=== PATIENT | male | born 1950 | race Caucasian/White ===

== ENCOUNTER 2021-04-10 09:48 | Emergency (ER) | payer OTHER ==
--- NOTE | 2021-04-10 10:56 | RAD REPORT ---
EXAM DESCRIPTION: Jason Single View04/10/2021 10:45 am CLINICAL HISTORY: Chest pain COMPARISON: none FINDINGS: The lungs appear clear of acute infiltrate. The heart is normal size IMPRESSION: No acute abnormalities displayed
[2021-04-10 10:58] LABS: Absolute Lymphocytes (CBC) 1.3 K/uL (0.7-4.9); Hematocrit 44.7 % (39.6-49.0); Lymphocytes % 16.3 % (15.3-44.8); MPV 7.9 fL (7.6-11.3); RBC Red Blood Cell Count 4.98 M/uL (4.33-5.43)
[2021-04-10 11:02] LABS: Protime INR 1.07
[2021-04-10 11:09] LABS: Potassium 4.1 mmol/L (3.5-5.1); Sodium Level 138 mmol/L (136-145)
[2021-04-10 11:20] LABS: ALT/SGPT 31 U/L (12-78); AST/SGOT 15 U/L (15-37); Albumin 3.9 g/dL (3.4-5.0); Alkaline Phosphatase 105 U/L (45-117); BUN Blood Urea Nitrogen 11 mg/dL (7-18); Bicarbonate 28 mmol/L (21-32); Bilirubin Direct 0.2 mg/dL (0-0.2); Bilirubin Total 0.7 mg/dL (0.2-1.0); Glucose Level 105 mg/dL (74-106); Magnesium 2.3 mg/dL (1.8-2.4); NT PRO-BNP 30 pg/mL (<125); Protein, Total 7.9 g/dL (6.4-8.2); Troponin (Emerg Dept Use Only) < 0.02 ng/mL (0.0-0.045)
--- NOTE | 2021-04-10 13:37 | ER ---
Nurse's Notes [facility] Name: Dave Kirby Age: 71 yrs Sex: Male : 1950 Arrival Date: 04/10/2021 Time: 09:53 Bed 15 Private MD: Chau De La Cruz V Diagnosis: Chest pain, unspecified Presentation: 04/10 10:19 Chief complaint: Patient states: for the past couple of weeks has had intermittent vg1 chest pain; states today chest pain over left pectoral and radiates to left arm. Denies NVD, SOB, or cough. Coronavirus screen: Vaccine status: Patient reports being unvaccinated. Client denies travel out of the [place] in the last 14 days. Ebola Screen: Patient negative for fever greater than or equal to 101.5 degrees Fahrenheit, and additional compatible Ebola Virus Disease symptoms. Initial Sepsis Screen: Does the patient meet any 2 criteria? No. Patient's initial sepsis screen is negative. Does the patient have a suspected source of infection? No. Patient's initial sepsis screen is negative. Risk Assessment: Do you want to hurt yourself or someone else? Patient reports no desire to harm self or others. Onset of symptoms was April 10, 2021. 10:19 Method Of Arrival: Ambulatory vg1 10:19 Acuity: FELICITA 2 vg1 Triage Assessment: 10:22 General: Appears in no apparent distress. comfortable, Behavior is calm, cooperative. vg1 Pain: Complains of pain in anterior aspect of left upper chest Pain currently is 2 out of 10 on a pain scale. Cardiovascular: Patient's skin is warm and dry. Historical: - Allergies: 10:22 No Known Allergies; vg1 - Home Meds: 10:22 None [Active]; vg1 - PMHx: 10:22 None; vg1 - Immunization history:: Client reports having NOT received the Covid vaccine. - Social history:: Smoking status: Patient denies any tobacco usage or history of. Screenin:06 Abuse screen: Denies threats or abuse. Denies injuries from another. Nutritional eo2 screening: No deficits noted. Tuberculosis screening: No symptoms or risk factors identified. Fall Risk None identified. Assessment: 12:01 General: Appears in no apparent distress. Behavior is calm, cooperative. Pain: eo2 Complains of pain in chest and anterior aspect of left upper chest Pain radiates to left arm Pain began "Couple of weeks" per pt, "more pronounced yesterday and today" per pt. 12:03 Neuro: Level of Consciousness is awake, alert, obeys commands, Oriented to person, eo2 place, time, situation, Denies weakness dizziness, headache. Cardiovascular: Reports chest pain, Denies shortness of breath. Respiratory: Airway is patent Breath sounds are clear bilaterally. Denies cough, shortness of breath. Musculoskeletal: Reports numbness/tingling in left arm. Vital Signs: 10:19 BP 146 / 94; Pulse 97; Resp 16; Temp 98.0; Pulse Ox 99% ; Weight 90.72 kg; Height 6 ft. vg1 1 in. (185.42 cm); Pain 2/10; 11:30 BP 129 / 81; Pulse 85; Resp 19; Pulse Ox 96% ; Pain 0/10; eo2 12:00 BP 133 / 93; Pulse 88; Resp 17; Pulse Ox 96% ; eo2 13:30 BP 137 / 75; Pulse 80; Resp 15; Pulse Ox 98% ; Pain 0/10; eo2 14:00 BP 123 / 71; Pulse 88; Resp 15; Pulse Ox 98% ; Pain 0/10; eo2 10:19 Body Mass Index 26.39 (90.72 kg, 185.42 cm) vg1 ED Course: 09:53 Patient arrived in ED. mr 09:53 Chau De La Cruz MD is Private Physician. mr 10:22 Triage completed. vg1 10:22 Arm band placed on. EKG completed in triage. Results shown to MD. vg1 10:36 Initial lab(s) drawn, by ED staff, sent to lab. Inserted saline lock: 20 gauge in left vg1 antecubital area, using aseptic technique. ,using aseptic technique. completed by KJ, aircraft life support fitter Blood collected. 10:44 XRAY Chest (1 view) In Process Unspecified. EDMS 10:55 Dale Leyva PA is PHCP. jr8 10:55 Donny Hernandez MD is Attending Physician. jr8 10:56 Mo Chambers MD is Attending Physician. jr8 11:18 Yue Castañeda, WOODROW is Primary Nurse. eo2 12:06 Patient has correct armband on for positive identification. cardiac monitor on. Pulse eo2 ox on. NIBP on. Door closed. Noise minimized. Warm blanket given. 12:06 No provider procedures requiring assistance completed. Patient maintains SpO2 eo2 saturation greater than 95% on room air. 13:30 Troponin (emerg Dept Use Only) Sent. eo2 13:36 Keyur Haque MD is Referral Physician. jr8 14:00 IV discontinued, intact. eo2 Administered Medications: No medications were administered Outcome: 13:36 Discharge ordered by . jrTiera 14:00 Discharged to home ambulatory. eo2 14:00 Condition: stable 14:00 Discharge instructions given to patient, Instructed on discharge instructions, follow up and referral plans. Demonstrated understanding of instructions, follow-up care. 14:15 Patient left the ED. eo2 Signatures: Dispatcher [employer] [facility] WhiteheadDarling AutumnDale PA PA jr8 Maryan Purvis, RN RN vg1 Yue Castañeda RN RN eo2
--- NOTE | 2021-04-10 13:37 | EDPHYS ---
Physician Documentation [facility] Name: Dave Kirby Age: 71 yrs Sex: Male : 1950 Arrival Date: 04/10/2021 Time: 09:53 Bed 15 Private MD: Chau De La Cruz V ED Physician Mo Chambers HPI: 04/10 12:00 This 71 yrs old Male presents to ER via Ambulatory with complaints of Chest Pain, Chest jr8 Tightness. 12:00 The patient or guardian reports chest pain that is located primarily in the anterior jr8 chest wall, left. Onset: gradually, 2 week(s) ago. The pain radiates to the left arm. Associated signs and symptoms: The patient has no apparent associated signs or symptoms. The chest pain is described as stabbing. Duration: The patient or guardian reports multiple episodes, that are intermittent. Modifying factors: The symptoms are alleviated by nothing. the symptoms are aggravated by nothing. Severity of pain: At its worst the pain was moderate in the emergency department the pain has improved. The patient has not experienced similar symptoms in the past. The patient has not recently seen a physician. Denies any current health conditions or use of any prescribed meds. Historical: - Allergies: 10:22 No Known Allergies; vg1 - Home Meds: 10:22 None [Active]; vg1 - PMHx: 10:22 None; vg1 - Immunization history:: Client reports having NOT received the Covid vaccine. - Social history:: Smoking status: Patient denies any tobacco usage or history of. ROS: 12:00 Eyes: Negative for injury, pain, redness, and discharge, ENT: Negative for injury, jr8 pain, and discharge, Neck: Negative for injury, pain, and swelling, Respiratory: Negative for shortness of breath, cough, wheezing, and pleuritic chest pain, Abdomen/GI: Negative for abdominal pain, nausea, vomiting, diarrhea, and constipation, Back: Negative for injury and pain, MS/Extremity: Negative for injury and deformity, Skin: Negative for injury, rash, and discoloration, Neuro: Negative for headache, weakness, numbness, tingling, and seizure. 12:00 Cardiovascular: Positive for chest pain, Negative for edema, orthopnea, palpitations, paroxysmal nocturnal dyspnea. Exam: 12:00 Constitutional: This is a well developed, well nourished patient who is awake, alert, jr8 and in no acute distress. Neck: Trachea midline, no thyromegaly or masses palpated, and no cervical lymphadenopathy. Supple, full range of motion without nuchal rigidity, or vertebral point tenderness. No Meningismus. Chest/axilla: Normal chest wall appearance and motion. Nontender with no deformity. No lesions are appreciated. Cardiovascular: Regular rate and rhythm with a normal S1 and S2. No gallops, murmurs, or rubs. Normal PMI, no JVD. No pulse deficits. Respiratory: Lungs have equal breath sounds bilaterally, clear to auscultation and percussion. No rales, rhonchi or wheezes noted. No increased work of breathing, no retractions or nasal flaring. Abdomen/GI: Soft, non-tender, with normal bowel sounds. No distension or tympany. No guarding or rebound. No evidence of tenderness throughout. Back: No spinal tenderness. No costovertebral tenderness. Full range of motion. Skin: Warm, dry with normal turgor. Normal color with no rashes, no lesions, and no evidence of cellulitis. MS/ Extremity: Pulses equal, no cyanosis. Neurovascular intact. Full, normal range of motion. Neuro: Awake and alert, GCS 15, oriented to person, place, time, and situation. Cranial nerves II-XII grossly intact. Motor strength 5/5 in all extremities. Sensory grossly intact. Vital Signs: 10:19 BP 146 / 94; Pulse 97; Resp 16; Temp 98.0; Pulse Ox 99% ; Weight 90.72 kg; Height 6 ft. vg1 1 in. (185.42 cm); Pain 2/10; 11:30 BP 129 / 81; Pulse 85; Resp 19; Pulse Ox 96% ; Pain 0/10; eo2 12:00 BP 133 / 93; Pulse 88; Resp 17; Pulse Ox 96% ; eo2 13:30 BP 137 / 75; Pulse 80; Resp 15; Pulse Ox 98% ; Pain 0/10; eo2 14:00 BP 123 / 71; Pulse 88; Resp 15; Pulse Ox 98% ; Pain 0/10; eo2 10:19 Body Mass Index 26.39 (90.72 kg, 185.42 cm) vg1 MDM: 10:56 Patient medically screened. jr8 12:00 HEART Score: History: Moderately Suspicious (1), ECG: Normal (0), Age: > or = 65 years jr8 (2), Risk Factors: No Risk Factors Known (0), Troponin: < or = 1 x Normal Limit (0), Total Score = 3. The patient was given aspirin in the Emergency Department. Data reviewed: vital signs, nurses notes, lab test result(s), EKG, radiologic studies, plain films. Data interpreted: Pulse oximetry: on room air is 99 %. Interpretation: normal. Counseling: I had a detailed discussion with the patient and/or guardian regarding: the historical points, exam findings, and any diagnostic results supporting the discharge/admit diagnosis, lab results, radiology results. 13:36 ED course: Patient hemodynamically stable. No pain at this time. x2 troponins both jr8 negative. Will send patient to see cardiology this week. Knows to come back if worse . 13:45 ED course: Close return precautions given to patient along with strict follow up. Low jr8 threshold to come back. Patient good with this and will follow instructions . 04/10 10:36 Order name: Basic Metabolic Panel; Complete Time: 11: 04/10 10:36 Order name: CBC with Diff; Complete Time: : 04/10 10:36 Order name: LFT's; Complete Time: 11: 04/10 10:36 Order name: Magnesium; Complete Time: 11: 04/10 10:36 Order name: NT PRO-BNP; Complete Time: 11: 04/10 10:36 Order name: PT-INR; Complete Time: 11: 04/10 10:36 Order name: Troponin (emerg Dept Use Only); Complete Time: 11: 04/10 10:36 Order name: XRAY Chest (1 view); Complete Time: 11: 04/10 10:36 Order name: EKG; Complete Time: 10:36 04/10 10:36 Order name: Cardiac monitoring; Complete Time: 11:24 04/10 10:36 Order name: EKG - Nurse/Tech; Complete Time: 10:36 04/10 10:36 Order name: IV Saline Lock; Complete Time: 10:36 04/10 12:29 Order name: Troponin (emerg Dept Use Only) jr8 04/10 12:30 Order name: Troponin (Emerg Dept Use Only); Complete Time: 13:35 EDMS 04/10 10:36 Order name: Labs collected and sent; Complete Time: 10:36 vg1 04/10 10:36 Order name: O2 Per Protocol; Complete Time: 10:36 vg1 04/10 10:36 Order name: O2 Sat Monitoring; Complete Time: 10:36 vg1 Administered Medications: No medications were administered Disposition: 17:05 Co-signature as Attending Physician, Mo Chambers MD. ma2 Disposition Summary: 04/10/21 13:36 Discharge Ordered Location: Home jr8 Problem: new jr8 Symptoms: have improved jr8 Condition: Stable jr8 Diagnosis - Chest pain, unspecified jr8 Followup: jr8 - With: Keyur Haque MD - When: 1 - 2 days - Reason: Recheck today's complaints, Continuance of care, Re-evaluation by your physician Discharge Instructions: - Discharge Summary Sheet jr8 - Nonspecific Chest Pain, Adult jr8 Forms: - Medication Reconciliation Form jr8 - Thank You Letter jr8 - Antibiotic Education jr8 - Prescription Opioid Use jr8 Signatures: Dispatcher [employer] EDMS Dale Leyva PA PA jr8 Mo Chambers MD MD ma2 Maryan Purvis RN RN vg1
[2021-04-10 14:25] VITALS: TEMP 98
[2021-04-10 14:31] VITALS: O2SAT 98
[2021-04-10 14:32] VITALS: BP 123/71
--- NOTE | 2021-04-11 10:06 | EKG ---
Test Date: 2021-04-10 Test Time: 10:25:53 Associate Quality Engineer: JOEY MEASUREMENT RESULTS: Intervals: Rate: 94 MI: 230 QRSD: 150 QT: 374 QTc: 467 [place]: P: 52 MI: 230 QRS: -71 T: 20 INTERPRETIVE STATEMENTS: Sinus rhythm with 1st degree AV block Right bundle branch block Left anterior fascicular block Bifascicular block Voltage criteria for left ventricular hypertrophy Cannot rule out Septal infarct, age undetermined Possible Lateral infarct, age undetermined Abnormal ECG No previous ECG available for comparison Electronically Signed On 04-11-21 10:04:37 OUT OF SCHOOL HOURS CARE WORKER by Keyur Haque
== END 2021-04-10 14:15 | disposition home or self-care (01) ==
LOC: ER 09:48
DX: R07.9 Chest pain, unspecified (principal)
CPT/HCPCS: 36415; 71045; 80048; 80076; 83735; 83880; 84484; 85025; 85610; 93005; 99285

== ENCOUNTER 2021-05-15 11:46 | Day surgery (SDC) | payer OTHER ==
[2021-05-13 10:57] LABS: Absolute Lymphocytes (CBC) 1.5 K/uL (0.7-4.9); Hematocrit 41.8 % (39.6-49.0); Lymphocytes % 21.5 % (15.3-44.8); MPV 7.5 fL (7.6-11.3); RBC Red Blood Cell Count 4.63 M/uL (4.33-5.43)
[2021-05-13 11:04] LABS: Protime INR 0.97
[2021-05-13 11:14] LABS: Potassium 4.1 mmol/L (3.5-5.1)
--- NOTE | 2021-05-14 05:34 | EKG ---
Test Date: 2021-05-13 Test Time: 10:32:53 Manager Advanced: CHERYL MEASUREMENT RESULTS: Intervals: Rate: 79 ME: 244 QRSD: 148 QT: 404 QTc: 463 [place]: P: 70 ME: 244 QRS: -72 T: 40 INTERPRETIVE STATEMENTS: Sinus rhythm with 1st degree AV block Right bundle branch block Left anterior fascicular block Bifascicular block Abnormal ECG Compared to ECG 04/10/2021 10:25:53 Left ventricular hypertrophy no longer present Myocardial infarct finding no longer present Bifascicular block still present Electronically Signed On 05-14-21 05:34:02 DIRECTOR OF PRODUCT DESIGN by Keyur Haque
[2021-05-15] MEDS ORDERED: NA CHLORIDE 0.9% 500 ML ONE (11:48)
[2021-05-15] MEDS ORDERED: HEPA 1000U/500MLS 2,000 UNIT/1,000 ML BAG IV ONE (13:27)
[2021-05-15] MEDS ORDERED: FENTANYL CITR 100 MCG/2 ML ONE (13:40)
[2021-05-15] MEDS ORDERED: MIDAZOLAM HCL 2 MG/2 ML INJ ONE (13:41)
[2021-05-15] MEDS ORDERED: VERAPAMIL HCL 10 MG/4 ML VIAL IV ONE (13:41)
[2021-05-15] MEDS ORDERED: HEPARIN 5000 UNIT/ML 1 ML VIAL ONE (13:41)
[2021-05-15] MEDS ORDERED: TICAGRELOR 90 MG TABLET PO ONE (13:42)
[2021-05-15] MEDS ORDERED: CLOPIDOGREL 75 MG TABLET ONE (13:42)
[2021-05-15] MEDS ORDERED: ASPIRIN 325 MG TAB ONE (13:42)
[2021-05-15] MEDS ORDERED: ATROPINE SULF 1 MG/10 ML SYR IV ONE (13:42)
[2021-05-15] MEDS ORDERED: HEPA 1000U/500MLS 1,000 UNIT/500 ML BAG IV ONE (14:27)
[2021-05-15] MEDS ORDERED: REGADENOSON 0.4 MG/5 ML SYR IV ONE (14:46)
[2021-05-15 16:45] VITALS: TEMP 98.2
--- NOTE | 2021-05-15 17:01 | OP ---
Date of Procedure: 05/15/2021 Surgeon: XOCHITL SWEENEY Procedures Performed: 1.Selective coronary angiogram. 2.FFR of moderate mid LAD stenosis, which was insignificant value of . 3.Left heart catheterization. Access: Right radial artery 6-Portuguese closed with TR band. Indication: Abnormal stress test. Complications: None. Anesthesia: Total sedation time was 45 minutes. Description Of Procedure: After risks, benefits, and alternatives were explained, the patient agreed to procedure and signed informed consent. The patient was brought into cardiac catheterization [facility], prepped and draped in sterile fashion. Then, we accessed the right radial artery using pedia ApprenNet micropuncture kit and placed a 6-Portuguese Slender sheath and then took 5-Portuguese [place] 4.0 catheter into the aortic root, engaged the left main and left coronary artery. Took standard views and then gave systemic heparin to assure ACT level above 250 and then took guide into the aortic tawnya t, engaged the left main and took a Comet wire and into the aortic root equalized pressure and then w kylie was advanced into the LAD crossing the area of stenosis and FFR was done using Lexiscan and a patty ue of 0.90 was obtained. Then, on pullback, there was no drift and final angiogram was satisfactory. Then, I removed the guide and the wire and sheath, and placed TR band with good hemostasis. Findings: 1.Left main normal. 2.LAD has a diffuse mid 50% to 60% stenosis after the diagonal 1 branch takeoff. It was insignifica nt by FFR of 0.90 and the diagonal 1 branch is larger than the LAD itself and free of disease. 3.Left circumflex is normal. 4.RCA; very large and dominant and normal. 5.Insignificant FFR of mid LAD of 0.90. 6.Normal LVEDP at 11 mmHg. Conclusion: 1.Moderate mid LAD stenosis which was insignificant by FFR value of 0.90. 2.Normal LVEDP and no other coronary artery disease. Plan: Medical management. Start him on Lipitor 40 mg at bedtime, aspirin 81 mg, and plan for stress test in 1 year. SR/MODL Voice ID: [id number] Report ID: [id number]
[2021-05-15 18:32] VITALS: BP 128/69; O2SAT 97
== END 2021-05-15 18:38 | disposition home or self-care (01) ==
LOC: CCL 11:46
PROVIDERS: ATTEND Internal Medicine
DX: I25.10 Atherosclerotic heart disease of native coronary artery without angina pectoris (principal); R03.0 Elevated blood-pressure reading, without diagnosis of hypertension; Z87.891 Personal history of nicotine dependence; Z20.822 Contact with and (suspected) exposure to COVID-19
CPT/HCPCS: 93005; 85025; 80048; 36415; 85610; 85730; 93458; 93571; U0003; C1893; J1644 ×3; J2250; J3010; J2785; J7040

== ENCOUNTER 2023-10-04 10:52 | Emergency (ER) | payer OTHER ==
[2023-10-04] MEDS ORDERED: FOLIC ACID 5 MG/ML VIAL ONE (11:18)
--- NOTE | 2023-10-04 11:18 | RAD REPORT ---
EXAM DESCRIPTION: CT - Ct Stroke Brain Wo Cont - 10/04/2023 11:11 am CLINICAL HISTORY: STROKE ALERT COMPARISON: No comparisons TECHNIQUE: All CT scans are performed using dose optimization technique as appropriate and may inclu de automated exposure control or mA/KV adjustment according to patient size. FINDINGS: No intracranial hemorrhage, hydrocephalus or extra-axial fluid collection.No areas of brai n edema or evidence of midline shift. The paranasal sinuses and mastoids are clear. The calvarium is intact. IMPRESSION: No acute intracranial abnormality. Conveyed to Dr. Hardy by Dr. Medellin at 1113 on 10/04/23
[2023-10-04 11:19] LABS: Specific Gravity < 1.005 (1.005-1.030); Urine Bilirubin NEGATIVE (Negative); Urine Blood Negative (Negative); Urine Clarity Clear (Clear); Urine Color Colorless (Yellow); Urine Glucose NEGATIVE (Negative); Urine Ketones NEGATIVE (Negative); Urine Microscopic Reflex YN NO UMIC; Urine Nitrite NEGATIVE (Negative); Urine Protein NEGATIVE (Negative); Urine Urobilinogen Normal (Normal)
[2023-10-04] MEDS ORDERED: NA CHLORIDE 0.9% 1,000 ML ONE (11:19)
[2023-10-04 11:21] LABS: PT Prothrombin Time 11.2 SECONDS (9.4-12.5); Protime INR 1.02
[2023-10-04 11:22] LABS: Absolute Lymphocytes (CBC) 1.1 K/uL (0.7-4.9); Absolute Monocytes 0.5 K/uL (0.1-1.3); Absolute Neutrophil 5.4 K/uL (1.8-8.0); Basophils % 0.6 % (0-1.3); Eosinophils % 0.5 % (0-4.4); Hematocrit 43.5 % (39.6-49.0); Hemoglobin 14.5 g/dL (13.6-17.9); Lymphocytes % 15.8 % (15.3-44.8); MCHC 33.3 g/dL (32.0-36.0); MCV 90.2 fL (80-100); MPV 7.6 fL (7.6-11.3); Monocytes % 7.6 % (3.3-12.3); Neutrophils % 75.5 % (41.7-73.7); Nucleated Red Blood Cells % 0.1 % (0-0); Platelets 317 thou/uL (152-406); RBC Red Blood Cell Count 4.82 M/uL (4.33-5.43); Red Cell Distribution Width 14.4 % (12.1-15.2)
--- NOTE | 2023-10-04 11:23 | RAD REPORT ---
EXAM DESCRIPTION: CT - Head angio - 10/04/2023 11:11 am CLINICAL HISTORY: CODE STROKE COMPARISON: Ct Stroke Brain Wo Cont dated 10/04/2023; Neck Angio dated 10/04/2023 TECHNIQUE: CT angiography of the head was performed with maximum intensity reformatted images. 3D ma ximum intensity pixel (MIP) reconstructions were created All CT scans are performed using dose optimization technique as appropriate and may include automated exposure control or mA/KV adjustment according to patient size. FINDINGS: Anterior circulation: The left ICA occlusion extends from the neck with reconstitution at the distal left petrous segment. Left M2 segment MCA occlusion. The right middle cerebral artery is patent. The anterior cerebral naima slava are patent. Posterior circulation: No aneurysm or large vessel occlusion. No hemodynamically significant stenosis. No arteriovenous malf ormation identified. The right distal vertebral artery is hypoplastic with prominent PICA branch. The basilar artery and posterior cerebral arteries are patent. origin of the right MANAGER POWER. IMPRESSION: Left M2 segment MCA occlusion. Reference CTA neck regarding left ICA occlusion. The left ICA does reconstitute at the distal left pe trous segment due to collateral flow. Findings discussed with Dr. Plaza by Dr. Medellin at 1119 on 10/04/23
--- NOTE | 2023-10-04 11:26 | RAD REPORT ---
EXAM DESCRIPTION: CT - Neck Angio - 10/04/2023 11:11 am CLINICAL HISTORY: PAIN COMPARISON: Ct Stroke Brain Wo Cont dated 10/04/2023 TECHNIQUE: CT angiography of the neck vessels was performed with maximum intensity reformatted image s. CAROTID STENOSIS REFERENCE USING NASCET CRITERIA: Mild - <50% stenosis. Moderate - 50-69% stenosis. Severe - 70-94% stenosis. Near occlusion - 95-99% stenosis. Occluded - 100% stenosis. All CT scans are performed using dose optimization technique as appropriate and may include automated exposure control or mA/KV adjustment according to patient size. FINDINGS: Long segment occlusion of the left ICA starting at the bulb and extending intracranially. The left external carotid artery is patent. The common carotid arteries are both patent. The right ICA has some calcified plaque proximally but no hemodynamically significant stenosis. The left vertebral artery is mildly dominant. Both vertebral arteries are patent. 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 The right carotid system and both vertebral arteries are patent. Discussed with Dr. Plaza at 1116 on 10/04/23
[2023-10-04 11:37] LABS: ALT/SGPT 25 U/L (16-61); AST/SGOT 17 U/L (15-37); Albumin 3.9 g/dL (3.4-5.0); Albumin/Globulin Ratio 1.1 (1.1-1.8); Alkaline Phosphatase 87 U/L (45-117); Anion Gap 5.8 mEq/L (5.0-15.0); BUN Blood Urea Nitrogen 7 mg/dL (7-18); Bicarbonate 29 mEq/L (21-32); Bilirubin Direct 0.2 mg/dL (0-0.2); Bilirubin Indirect, Calculated 0.4 mg/dL (0.2-0.8); Bilirubin Total 0.6 mg/dL (0.2-1.0); C-Reactive Protein < 2.90 mg/L (<3.00); Globulin 3.7 g/dL (2.3-3.5); Glomerular Filtration Rate 79 ml/min (=/>90); Glucose Level 107 mg/dL (74-106); Magnesium 2.2 mg/dL (1.6-2.4); NT PRO-BNP 24 pg/mL (<125); Potassium 3.8 mEq/L (3.5-5.1); Protein, Total 7.6 g/dL (6.4-8.2); Sodium Level 133 mEq/L (136-145); Troponin High Sensitivity 8.8 pg/mL (<58.9)
[2023-10-04] MEDS ORDERED: ASPIRIN 81 MG CHEWABLE TABLET ONE (11:39)
[2023-10-04] MEDS ORDERED: CLOPIDOGREL 75 MG TABLET ONE (11:39)
--- NOTE | 2023-10-04 11:50 | ER ---
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 STATES WAS TRYING TO TALK AND THE WORDS WERE NOT COMING OUT LIKE HE WANTED. STATES CAN SPEAK BETTER NOW. Coronavirus screen: Client denies travel out of the [place] in the last 14 days. At this time, the client does not indicate any symptoms associated with coronavirus-19. Ebola Screen: Patient negative for fever greater than or equal to 101.5 degrees Fahrenheit, and additional compatible Ebola Virus Disease symptoms Patient denies exposure to infectious person. Patient denies travel to an Ebola-affected area in the 21 days before illness onset. No symptoms or risks identified at this time. No acute neurological deficit is noted. The patients blood glucose was checked before arriving to the hospital and was found to be normal. Initial Sepsis Screen: Does the patient meet any 2 criteria? No. Patient's initial sepsis screen is negative. Does the patient have a suspected source of infection? No. Patient's initial sepsis screen is negative. Risk Assessment: Do you want to hurt yourself or someone else? Patient reports no desire to harm self or others. Onset of symptoms was October 04, 2023 at 04:30. Care prior to arrival: IV initiated. 18 GA, in the left antecubital area. 10:53 Method Of Arrival: EMS: [facility] db 10:53 Acuity: FELICITA 2 db Triage Assessment: 10:53 The onset of the patients symptoms was October 03, 2023 at 21:00. General: Appears in no db apparent distress. comfortable, Behavior is calm, cooperative. Pain: Denies pain. Neuro: Level of Consciousness is awake, alert, obeys commands, Oriented to person, place, time, situation, Appropriate for age Moves all extremities. Full function Gait is steady, Speech is normal, Facial symmetry appears normal, Pupils are PERRLA. Respiratory: Airway is patent Respiratory effort is even, unlabored, Respiratory pattern is regular, symmetrical. 13:06 Neuro: Reports APHASIA. db Stroke Activation: Symptom onset > 6 hours Physician: ED Attending; Name: ; Notified At: ; Arrived At: Physician: Mid-Level Provider; Name: ; Notified At: ; Arrived At: Physician: [not used]; Name: ; Notified At: ; Arrived At: Physician: [not used]; Name: ; Notified At: ; Arrived At: Physician: [not used]; Name: ; Notified At: ; Arrived At: Historical: - Allergies: 10:53 No Known Allergies; db - PMHx: 12:40 None; db - Immunization history:: Adult Immunizations unknown. - Infectious Disease History:: Denies. - Social history:: Smoking status: Patient denies any tobacco usage or history of. Screenin:23 Estela Swallow Protocol Exclusion Criteria: Exclusion Criteria Result: Proceed Brief es3 Cognitive Screen What is your name? Normal, Where are you right now? Normal, What year is it? Normal. Oral Mechanism Examination Facial Symmetry: Normal, Motion: Normal, Lip Closure: Normal, Oral Mechanism Result: Normal. 3 oz Water Swallow Challenge: Pt able to drink all water without stopping, coughing, choking or throat clearing: Yes Result: PASS Notified: Houston Hardy MD. 13:05 [facility] ED Fall Risk Assessment (Adult) History of falling in the last 3 months, db including since admission No falls in past 3 months (0 pts) Confusion or Disorientation No (0 pts) Intoxicated or Sedated No (0 pts) Impaired Gait No (0 pts) Mobility Assist Device Used No (0 pt) Altered Elimination No (0 pt) Score/Fall Risk Level 0 - 2 = Low Risk Oriented to surroundings, Maintained a safe environment. Abuse screen: Denies threats or abuse. Denies injuries from another. Nutritional screening: No deficits noted. Tuberculosis screening: No symptoms or risk factors identified. Assessment: 11:13 Reassessment: Pt back from CT scan via stretcher, accompanied by me. . aa5 11:23 VAN Scoring: Arm Drift: Patients demonstrates NO arm weakness. Patient is VAN Negative. db Visual Disturbance: No visual disturbance noted. Aphasia: Expressive aphasia noted. Provider notified of +VAN scoring. Neglect: No neglect noted. TNKase (Tenecteplase) Screening: Contraindications: Other: OUTSIDE TNK ADMINISTRATION TIME. 11:34 Reassessment: PATIENT SON CHACE KIRBY [phone] PROVIDED UPDATE OF PATIENT CONDITION db AND ASKED FOR UPDATE OF WHERE PATIENT IS GOING. 11:52 Reassessment: Patient appears in no apparent distress at this time. Patient and/or db family updated on plan of care and expected duration. Pain level reassessed. Patient is alert, oriented x 3, equal unlabored respirations, skin warm/dry/pink. PATIENT SITTING UP TALKING ON THE PHONE. General: Appears in no apparent distress. comfortable, Behavior is calm, cooperative. Neuro: Level of Consciousness is awake, alert, obeys commands, Oriented to person, place, time, situation. Respiratory: Airway is patent Respiratory effort is even, unlabored, Respiratory pattern is regular, symmetrical. 12:43 Reassessment: REPORT GIVEN TO [facility] REAGAN AT [facility]. db 12:44 Reassessment: Patient appears in no apparent distress at this time. Patient and/or db family updated on plan of care and expected duration. Pain level reassessed. Patient is alert, oriented x 3, equal unlabored respirations, skin warm/dry/pink. 13:05 Reassessment: EMS ARRIVAL FOR PATIENT TRANSPORT OF PT TO RECEIVING HOS[facility]. db 13:05 Reassessment: Patient appears in no apparent distress at this time. Patient and/or db family updated on plan of care and expected duration. Pain level reassessed. Patient is alert, oriented x 3, equal unlabored respirations, skin warm/dry/pink. Patient states feeling better. Vital Signs: 10:53 BP 170 / 102; Pulse 86; Resp 16; Pulse Ox 98% on R/A; Weight 90.72 kg; Height 6 ft. 1 db in. ; 11:15 BP 181 / 148; Pulse 86; Resp 20; Temp 98(O); Pulse Ox 98% ; db 11:19 BP 180 / 102; Pulse 86; Resp 16; Pulse Ox 97% ; db 11:30 BP 155 / 83; Pulse 82; Resp 16; Pulse Ox 97% on R/A; db 12:30 BP 146 / 77; Pulse 70; Resp 20; Pulse Ox 97% on R/A; db 10:53 Body Mass Index 26.39 (90.72 kg, 185.42 cm) db Vitals: 11:15 Cardiac Rhythm Assessment Regular Sinus rhythm. db NIH Stroke Scale Scores: 11:23 NIHSS Score: 1 es3 11:56 NIHSS Score: 1 meredith 13:04 NIHSS Score: 1 db ED Course: 10:53 Arm band placed on Patient placed in an exam room. db 10:54 Patient arrived in ED. db 10:57 Houston Hardy MD is Attending Physician. meredith 10:[address] via stretcher. db 10:58 Janis Camacho, RN is Primary Nurse. db 11:00 Inserted saline lock: 22 gauge in right antecubital area, using aseptic technique. db 11:04 Triage completed. db 11:06 Maintain EMS IV. Dressing intact. Good blood return noted. Site clean \T\ dry. Gauge \T\ db site: 18 G LEFT AC. Flushed left. 11:12 CT Stroke Brain w/o Contrast In Process Unspecified. EDMS 11:13 CT Neck Angio In Process Unspecified. EDMS 11:13 Head angio In Process Unspecified. EDMS 11:21 EKG done, by ED staff, reviewed by Houston Hardy MD. zm 11:27 Patient has correct armband on for positive identification. Bed in low position. Call db light in reach. Side rails up X2. Provided Education on: STROKE CARE AND PLANNING. Client placed on continuous cardiac and pulse oximetry monitoring. NIBP monitoring applied. court monitor on. Pulse ox on. NIBP on. Warm blanket given. 11:55 XRAY Chest (1 view) In Process Unspecified. EDMS 13:05 No provider procedures requiring assistance completed. Patient transferred, IV remains db in place. Administered Medications: 11:18 Drug: foLIC Acid IVPB 1 mg IVPB once Route: IVPB; Site: left antecubital; db 11:51 Follow up: Response: No adverse reaction; IV Status: Completed infusion db 11:18 Drug: NS 0.9% IV 1000 ml IV at 1 bolus Per protocol; 1000 mL bolus Route: IV; Rate: 1 db bolus; Site: left antecubital; 13:07 Follow up: Response: No adverse reaction; IV Status: Completed infusion; IV Intake: db 1000ml 11:40 Drug: Aspirin PO Chewable Tablet 162 mg PO once Route: PO; db 13:07 Follow up: Response: No adverse reaction db 11:40 Drug: Clopidogrel PO 75 mg PO once Route: PO; db 13:07 Follow up: Response: No adverse reaction db Medication: 13:05 VIS not applicable for this client. db Point of Care Testing: Blood Glucose: 11:28 Blood Glucose: 100 mg/dL; db Ranges: Intake: 13:07 IV: 1000ml; Total: 1000ml. db Outcome: 11:50 ER care complete, transfer ordered by meredith 13:05 Transferred by ground EMS to [facility], Transfer form completed. db X-rays sent w/ patient. 13:05 Condition: stable 13:05 Instructed on the need for transfer, 13:13 Patient left the ED. db NIH Stroke Scale - NIH Stroke Score Date: 10/04/2023 Time: 11:23 Total Score = 1 10. Dysarthria (speech clarity - read or repeat words) - 0(Normal) 11. Extinction and Inattention (visual/tactile/auditory/spatial/personal) - 0(No abnormality) 1a. Level of Consciousness (LOC) - 0(Alert) 1b. Level of Consciousness (LOC) (Month \T\ Age) - 0(Both) 1c. LOC Commands (Open \T\ Closes Eyes/Manager Intern) - 0(Both) 2. Best Gaze (Lateral Gaze Paresis) - 0(Normal) 3. Visual Field Loss - 0(No visual loss) 4. Facial Palsy - 0(Normal) 5a. Left Arm: Motor (10-second hold) - 0(No drift) 5b. Right Arm: Motor (10-second hold) - 0(No drift) 6a. Left Leg: Motor (5-second hold - always test supine) - 0(No drift) 6b. Right Leg: Motor (5-second hold - always test supine) - 0(No drift) 7. Limb Ataxia (finger/nose \T\ heel/zheng - test with eyes open) - 0(Absent) 8. Sensory Loss (pinprick arms/legs/face) - 0(Normal) 9. Best Language: Aphasia (description/naming/reading) - 1(Mild to moderate aphasia) Initials: es3 NIH Stroke Scale - NIH Stroke Score Date: 10/04/2023 Time: 11:56 Total Score = 1 10. Dysarthria (speech clarity - read or repeat words) - 0(Normal) 11. Extinction and Inattention (visual/tactile/auditory/spatial/personal) - 0(No abnormality) 1a. Level of Consciousness (LOC) - 0(Alert) 1b. Level of Consciousness (LOC) (Month \T\ Age) - 0(Both) 1c. LOC Commands (Open \T\ Closes Eyes/Manager Intern) - 0(Both) 2. Best Gaze (Lateral Gaze Paresis) - 0(Normal) 3. Visual Field Loss - 0(No visual loss) 4. Facial Palsy - 0(Normal) 5a. Left Arm: Motor (10-second hold) - 0(No drift) 5b. Right Arm: Motor (10-second hold) - 0(No drift) 6a. Left Leg: Motor (5-second hold - always test supine) - 0(No drift) 6b. Right Leg: Motor (5-second hold - always test supine) - 0(No drift) 7. Limb Ataxia (finger/nose \T\ heel/zheng - test with eyes open) - 0(Absent) 8. Sensory Loss (pinprick arms/legs/face) - 0(Normal) 9. Best Language: Aphasia (description/naming/reading) - 1(Mild to moderate aphasia) Initials: [facility] NIH Stroke Scale - NIH Stroke Score Date: 10/04/2023 Time: 13:04 Total Score = 1 10. Dysarthria (speech clarity - read or repeat words) - 0(Normal) 11. Extinction and Inattention (visual/tactile/auditory/spatial/personal) - 0(No abnormality) 1a. Level of Consciousness (LOC) - 0(Alert) 1b. Level of Consciousness (LOC) (Month \T\ Age) - 0(Both) 1c. LOC Commands (Open \T\ Closes Eyes/Manager Intern) - 0(Both) 2. Best Gaze (Lateral Gaze Paresis) - 0(Normal) 3. Visual Field Loss - 0(No visual loss) 4. Facial Palsy - 0(Normal) 5a. Left Arm: Motor (10-second hold) - 0(No drift) 5b. Right Arm: Motor (10-second hold) - 0(No drift) 6a. Left Leg: Motor (5-second hold - always test supine) - 0(No drift) 6b. Right Leg: Motor (5-second hold - always test supine) - 0(No drift) 7. Limb Ataxia (finger/nose \T\ heel/zheng - test with eyes open) - 0(Absent) 8. Sensory Loss (pinprick arms/legs/face) - 0(Normal) 9. Best Language: Aphasia (description/naming/reading) - 1(Mild to moderate aphasia) Initials: db Signatures: Dispatcher [employer] Houston Marte MD MD cha Calderon, Audri, RN RN [id number] Dorene Mora Danielle, RN RN Suzette Florence RN RN es3
--- NOTE | 2023-10-04 11:51 | EDPHYS ---
Physician Documentation [facility] Name: Dave Kirby Age: 73 yrs Sex: Male : 1950 Arrival Date: 10/04/2023 Time: 10:52 Bed 16 Private MD: ED Physician Houston Hardy HPI: 10/03 11:31 This 73 yrs old Male presents to ER via EMS with complaints of S/S of meredith Possible Stroke. Historical: - Allergies: 10:53 No Known Allergies; db - PMHx: 12:40 None; db - Immunization history:: Adult Immunizations unknown. - Infectious Disease History:: Denies. - Social history:: Smoking status: Patient denies any tobacco usage or history of. ROS: 11:35 Constitutional: Negative for fever, chills, and weight loss, Eyes: Negative for injury, meredith pain, redness, and discharge, ENT: Negative for injury, pain, and discharge, Neck: Negative for injury, pain, and swelling, Cardiovascular: Negative for chest pain, palpitations, and edema, Respiratory: Negative for shortness of breath, cough, wheezing, and pleuritic chest pain, Abdomen/GI: Negative for abdominal pain, nausea, vomiting, diarrhea, and constipation, Back: Negative for injury and pain, : Negative for injury, bleeding, discharge, and swelling, MS/Extremity: Negative for injury and deformity, Skin: Negative for injury, rash, and discoloration, Psych: Negative for depression, anxiety, suicide ideation, homicidal ideation, and hallucinations, Allergy/Immunology: Negative for hives, rash, and allergies, Endocrine: Negative for neck swelling, polydipsia, polyuria, polyphagia, and marked weight changes, Hematologic/Lymphatic: Negative for swollen nodes, abnormal bleeding, and unusual bruising, 11:35 Neuro: Positive for gait disturbance, speech changes, weakness, Exam: 11:35 Radiologist reports: negative meredith 11:35 Constitutional: This is a well developed, well nourished patient who is awake, alert, and in no acute distress. Head/Face: Normocephalic, atraumatic. Eyes: Pupils equal round and reactive to light, extra-ocular motions intact. Lids and lashes normal. Conjunctiva and sclera are non-icteric and not injected. Cornea within normal limits. Periorbital areas with no swelling, redness, or edema. ENT: Nares patent. No nasal discharge, no septal abnormalities noted. Tympanic membranes are normal and external auditory canals are clear. Oropharynx with no redness, swelling, or masses, exudates, or evidence of obstruction, uvula midline. Mucous membranes moist. Neck: Trachea midline, no thyromegaly or masses palpated, and no cervical lymphadenopathy. Supple, full range of motion without nuchal rigidity, or vertebral point tenderness. No Meningismus. Chest/axilla: Normal chest wall appearance and motion. Nontender with no deformity. No lesions are appreciated. Cardiovascular: Regular rate and rhythm with a normal S1 and S2. No gallops, murmurs, or rubs. Normal PMI, no JVD. No pulse deficits. Respiratory: Lungs have equal breath sounds bilaterally, clear to auscultation and percussion. No rales, rhonchi or wheezes noted. No increased work of breathing, no retractions or nasal flaring. Abdomen/GI: Soft, non-tender, with normal bowel sounds. No distension or tympany. No guarding or rebound. No evidence of tenderness throughout. Back: No spinal tenderness. No costovertebral tenderness. Full range of motion. Male : Normal genitalia with no discharge or lesions. Skin: Warm, dry with normal turgor. Normal color with no rashes, no lesions, and no evidence of cellulitis. MS/ Extremity: Pulses equal, no cyanosis. Neurovascular intact. Full, normal range of motion. Neuro: Awake and alert, GCS 15, oriented to person, place, time, and situation. Cranial nerves II-XII grossly intact. Motor strength 5/5 in all extremities. Sensory grossly intact. Cerebellar exam normal. Normal gait. Psych: Awake, alert, with orientation to person, place and time. Behavior, mood, and affect are within normal limits. 11:35 ECG was reviewed by the Attending Physician. Vital Signs: 10:53 BP 170 / 102; Pulse 86; Resp 16; Pulse Ox 98% on R/A; Weight 90.72 kg; Height 6 ft. 1 db in. ; 11:15 BP 181 / 148; Pulse 86; Resp 20; Temp 98(O); Pulse Ox 98% ; db 11:19 BP 180 / 102; Pulse 86; Resp 16; Pulse Ox 97% ; db 11:30 BP 155 / 83; Pulse 82; Resp 16; Pulse Ox 97% on R/A; db 12:30 BP 146 / 77; Pulse 70; Resp 20; Pulse Ox 97% on R/A; db 10:53 Body Mass Index 26.39 (90.72 kg, 185.42 cm) db NIH Stroke Scale Scores: 11:23 NIHSS Score: 1 es3 11:56 NIHSS Score: 1 meredith 13:04 NIHSS Score: 1 db Procedures: 12:21 Peripheral line: by aseptic technique a peripheral line was placed in the right [facility] external jugular vein. MDM: 10:57 Patient medically screened. meredith 11:37 Differential diagnosis: CVA, TIA, Dementia, paralysis, Parkinson disease, metabolic meredith disorder, drug effects. TNKase (Tenecteplase) Screening: Indications: Definite evidence of stroke, ischemic, embolic, or hypertensive: Yes. Treatment will start within 4.5 hours onset of symptoms: No. No evidence of intracranial hemorrhage or CT of head and no evidence of peripheral hemorrhage or recent CVA: Consent for thrombolytic therapy: Yes. Contraindications: Patient reports onset of signs and symptoms of stroke greater than 6 hours ago: Yes. Glucose less than 50 or greater than 400 mg/dl: Yes. Is the patient on Aspirin, Heparin, or Warfarin: No. Recent VT suspected and/or VT-related pericarditis: No. Active peripheral bleeding/history of intracranial bleeding: No. Recent serious head injury or stroke in the past 3 months: No. Blood pressure is more than 185/110: Yes. Data reviewed: vital signs, nurses notes, lab test result(s), EKG, radiologic studies, CT scan. Consideration of Admission/Observation Escalation of care including admission/observation considered. I considered the following discharge prescriptions or medication management in the emergency department Medications were administered in the Emergency Department. See 10:58 Order name: Basic Metabolic Panel; Complete Time: 11:50 10/03 10:58 Order name: CBC with Diff; Complete Time: 11:29 10/03 10:58 Order name: LFT's; Complete Time: 11:50 10/03 10:58 Order name: Magnesium; Complete Time: 11:50 10/03 10:58 Order name: NT PRO-BNP; Complete Time: 11:50 meredith 10/03 10:58 Order name: PT-INR; Complete Time: 11:29 [facility] 10/03 10:58 Order name: Troponin HS; Complete Time: 11:50 [facility] 10/03 10:58 Order name: CRP; Complete Time: 11:50 [facility] 10/03 10:58 Order name: Urinalysis w/ reflexes; Complete Time: 11:29 [facility] 10/03 11:40 Order name: Glucose, Ancillary Testing; Complete Time: 11:50 EDMS 10/03 10:58 Order name: XRAY Chest (1 view) [facility] 10/03 10:58 Order name: CT Stroke Brain w/o Contrast; Complete Time: 11:29 [facility] 10/03 10:58 Order name: CT Neck Angio; Complete Time: 11:29 [facility] 10/03 11:06 Order name: Head angio; Complete Time: 11:29 EDDC 10/03 10:58 Order name: Cardiac monitoring; Complete Time: 11: [facility] 10/03 10:58 Order name: EKG - Nurse/Tech; Complete Time: 11:21 [facility] 10/03 10:58 Order name: IV Saline Lock; Complete Time: 11: [facility] 10/03 10:58 Order name: Labs collected and sent; Complete Time: 11: [facility] 10/03 10:58 Order name: O2 Per Protocol; Complete Time: 11: [facility] 10/03 10:58 Order name: O2 Sat Monitoring; Complete Time: 11: [facility] EC:35 Rate is 85 beats/min. Rhythm is regular. QRS [place] is Normal. OR interval is normal. QRS meredith interval is normal. QT interval is normal. No Q waves. T waves are Normal. No ST changes noted. Clinical impression: NSR w/ Non-specific ST/T Changes, LVH, and No evidence of ischemia. Interpreted by me. Reviewed by me. Administered Medications: 11:18 Drug: foLIC Acid IVPB 1 mg IVPB once Route: IVPB; Site: left antecubital; db 11:51 Follow up: Response: No adverse reaction; IV Status: Completed infusion db 11:18 Drug: NS 0.9% IV 1000 ml IV at 1 bolus Per protocol; 1000 mL bolus Route: IV; Rate: 1 db bolus; Site: left antecubital; 13:07 Follow up: Response: No adverse reaction; IV Status: Completed infusion; IV Intake: db 1000ml 11:40 Drug: Aspirin PO Chewable Tablet 162 mg PO once Route: PO; db 13:07 Follow up: Response: No adverse reaction db 11:40 Drug: Clopidogrel PO 75 mg PO once Route: PO; db 13:07 Follow up: Response: No adverse reaction db Point of Care Testing: Blood Glucose: 11:28 Blood Glucose: 100 mg/dL; db Ranges: Critical Glucose Levels:Adult <50 mg/dl or >400 mg/dl <40 mg/dl or >180 mg/dl Disposition Summary: 10/04/23 11:50 Transfer Ordered Notes: Transfer Location: [facility] meredith Reason: Higher level of care meredith Condition: Stable meredith Problem: new meredith Symptoms: have improved meredith Accepting Physician: to 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 Total time: 40 minutes NIH Stroke Scale - NIH Stroke Score Date: 10/04/2023 Time: 11:23 Total Score = 1 10. Dysarthria (speech clarity - read or repeat words) - 0(Normal) 11. Extinction and Inattention (visual/tactile/auditory/spatial/personal) - 0(No abnormality) 1a. Level of Consciousness (LOC) - 0(Alert) 1b. Level of Consciousness (LOC) (Month \T\ Age) - 0(Both) 1c. LOC Commands (Open \T\ Closes Eyes/Cash Applications Associate) - 0(Both) 2. Best Gaze (Lateral Gaze Paresis) - 0(Normal) 3. Visual Field Loss - 0(No visual loss) 4. Facial Palsy - 0(Normal) 5a. Left Arm: Motor (10-second hold) - 0(No drift) 5b. Right Arm: Motor (10-second hold) - 0(No drift) 6a. Left Leg: Motor (5-second hold - always test supine) - 0(No drift) 6b. Right Leg: Motor (5-second hold - always test supine) - 0(No drift) 7. Limb Ataxia (finger/nose \T\ heel/zheng - test with eyes open) - 0(Absent) 8. Sensory Loss (pinprick arms/legs/face) - 0(Normal) 9. Best Language: Aphasia (description/naming/reading) - 1(Mild to moderate aphasia) Initials: es3 NIH Stroke Scale - NIH Stroke Score Date: 10/04/2023 Time: 11:56 Total Score = 1 10. Dysarthria (speech clarity - read or repeat words) - 0(Normal) 11. Extinction and Inattention (visual/tactile/auditory/spatial/personal) - 0(No abnormality) 1a. Level of Consciousness (LOC) - 0(Alert) 1b. Level of Consciousness (LOC) (Month \T\ Age) - 0(Both) 1c. LOC Commands (Open \T\ Closes Eyes/Cash Applications Associate) - 0(Both) 2. Best Gaze (Lateral Gaze Paresis) - 0(Normal) 3. Visual Field Loss - 0(No visual loss) 4. Facial Palsy - 0(Normal) 5a. Left Arm: Motor (10-second hold) - 0(No drift) 5b. Right Arm: Motor (10-second hold) - 0(No drift) 6a. Left Leg: Motor (5-second hold - always test supine) - 0(No drift) 6b. Right Leg: Motor (5-second hold - always test supine) - 0(No drift) 7. Limb Ataxia (finger/nose \T\ heel/zheng - test with eyes open) - 0(Absent) 8. Sensory Loss (pinprick arms/legs/face) - 0(Normal) 9. Best Language: Aphasia (description/naming/reading) - 1(Mild to moderate aphasia) Initials: meredith NIH Stroke Scale - NIH Stroke Score Date: 10/04/2023 Time: 13:04 Total Score = 1 10. Dysarthria (speech clarity - read or repeat words) - 0(Normal) 11. Extinction and Inattention (visual/tactile/auditory/spatial/personal) - 0(No abnormality) 1a. Level of Consciousness (LOC) - 0(Alert) 1b. Level of Consciousness (LOC) (Month \T\ Age) - 0(Both) 1c. LOC Commands (Open \T\ Closes Eyes/Cash Applications Associate) - 0(Both) 2. Best Gaze (Lateral Gaze Paresis) - 0(Normal) 3. Visual Field Loss - 0(No visual loss) 4. Facial Palsy - 0(Normal) 5a. Left Arm: Motor (10-second hold) - 0(No drift) 5b. Right Arm: Motor (10-second hold) - 0(No drift) 6a. Left Leg: Motor (5-second hold - always test supine) - 0(No drift) 6b. Right Leg: Motor (5-second hold - always test supine) - 0(No drift) 7. Limb Ataxia (finger/nose \T\ heel/zheng - test with eyes open) - 0(Absent) 8. Sensory Loss (pinprick arms/legs/face) - 0(Normal) 9. Best Language: Aphasia (description/naming/reading) - 1(Mild to moderate aphasia) Initials: db Signatures: Dispatcher [employer] EDMS Houston Hardy MD MD cha Benton, Danielle RN RN db Corrections: (The following items were deleted from the chart) 10:58 10:58 BASIC METABOLIC PANEL+C.LAB.BRZ ordered. EDMS EDMS 10:58 10:58 CBC+H.LAB.BRZ ordered. EDMS EDMS 10:58 10:58 HEPATIC FUNCTION+C.LAB.BRZ ordered. EDMS EDMS 10:58 10:58 MAGNESIUM+C.LAB.BRZ ordered. EDMS EDMS 10:58 10:58 PROBNP+C.LAB.BRZ ordered. EDMS EDMS 10:58 10:58 PROTIME (+INR)+COAG.LAB.BRZ ordered. EDMS EDMS 10:58 10:58 Troponin High Sensitivity+C.LAB.BRZ ordered. EDMS EDMS 10:58 10:58 C-REACTIVE PROTEIN+C.LAB.BRZ ordered. EDMS EDMS 10:58 10:58 Urinalysis+U.LAB.BRZ ordered. EDMS EDMS 10:59 10:59 Chest Single View+RAD.RAD.BRZ ordered. EDMS EDMS 10:59 10:59 CT-STROKE BRAIN W/O CONTRAST+CT.RAD.BRZ ordered. EDMS EDMS 10:59 10:59 Neck Angio+CT.RAD.BRZ ordered. EDMS EDMS 13:13 11:[address] denis meredith db
--- NOTE | 2023-10-04 12:16 | RAD REPORT ---
EXAM DESCRIPTION: RAD - Chest Single View - 10/04/2023 11:53 am CLINICAL HISTORY: COUGH COMPARISON: Chest Single View dated 04/10/2021 FINDINGS: Lines: None. Lungs: No evidence of edema or pneumonia. Pleural: No significant pleural effusions or pneumothorax. Cardiac: The heart size is within normal limits. Mediastinum: Within normal limits. Bones: No acute fractures. Other: None IMPRESSION: No acute cardiopulmonary disease.
[2023-10-04 13:52] VITALS: BP 146/77; TEMP 98; O2SAT 97
--- NOTE | 2023-10-05 14:35 | EKG ---
Test Date: 2023-10-04 Test Time: 11:17:07 English And Reading Instructor: IZAIAH MEASUREMENT RESULTS: Intervals: Rate: 85 MN: 274 QRSD: 158 QT: 410 QTc: 487 [place]: P: 69 MN: 274 QRS: -67 T: 41 INTERPRETIVE STATEMENTS: Sinus rhythm with 1st degree AV block Right bundle branch block Left anterior fascicular block Bifascicular block Moderate voltage criteria for LVH, may be normal variant Cannot rule out Septal infarct, age undetermined Abnormal ECG Compared to ECG 05/13/2021 10:32:53 Left ventricular hypertrophy now present Myocardial infarct finding now present Bifascicular block still present Electronically Signed On 10-05-23 14:32:48 CDT by Agustín Sandoval
== END 2023-10-04 13:13 | disposition short-term general hospital (02) ==
LOC: ER 10:52
DX: I63.232 Cerebral infarction due to unspecified occlusion or stenosis of left carotid arteries (principal); I10 Essential (primary) hypertension; R29.701 NIHSS score 1
CPT/HCPCS: 96365; 96361; 93005; 85025; 80048; 36415; 83735; 85610; 82565; 82947; 80076; 81003; 84484; 83880; 86140; 70496; 70498; 70450; 71045; 99285; 36569; Q9967; J7030